=== PATIENT | male | born 1970 | race Caucasian/White ===

== ENCOUNTER 2021-09-21 12:19 | Inpatient (IN) | payer MEDICAID, SELFPAY ==
[2021-09-21 13:04] VITALS: BP 126/83; PULSE 68; RESP 16; TEMP 36.4; O2SAT 99
[2021-09-21 13:08] VITALS: BP 126/83; PULSE 68; RESP 16; TEMP 36.4; O2SAT 99
[2021-09-21 14:00] VITALS: BP 126/83; PULSE 68; RESP 16; TEMP 36.4; O2SAT 99
[2021-09-21 15:21] VITALS: BMI 17.2
[2021-09-21] MEDS: nicotine 2 mg Gum BUCCAL (17:37)
[2021-09-21 21:04] VITALS: BP 124/83; PULSE 72; RESP 17; TEMP 36.8; O2SAT 97
[2021-09-21 21:34] VITALS: BP 124/83; PULSE 72; RESP 17; TEMP 36.8; O2SAT 97
[2021-09-22 06:00] VITALS: BP 123/84; PULSE 58; RESP 19; TEMP 36.4; O2SAT 99
[2021-09-22] MEDS: nicotine 2 mg Gum BUCCAL ×4 (06:51→18:58)
[2021-09-22] MEDS: folic acid 1 mg Tablet PO (09:12)
[2021-09-22] MEDS: thiamine 100 mg Tablet PO (09:12)
[2021-09-22] MEDS: multivitamin therapeutic Tablet 1 TAB PO (09:12)
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
--- NOTE | 2021-09-22 12:05 | NPU.GN ---
[facility] Unit Group Topic:Whine Barrel Activity General Mood of Group: Bobby did not attend group today. Bobby did meet with the CSS and discuss [facility] services. CSS aided client in completing the [facility] paperwork.
[2021-09-22 14:00] VITALS: BP 142/84; PULSE 67; RESP 16; TEMP 36.8; O2SAT 100
--- NOTE | 2021-09-22 17:00 | PC.NURSE ---
Patient brother Remington called and stated that [facility] has an opening for patient. Will notify case management.
--- NOTE | 2021-09-22 17:07 | PC.NURSE ---
Patient gave verbal consent for us to discuss information with brother Remington.
[2021-09-22 20:27] VITALS: BP 130/81; PULSE 55; RESP 17; O2SAT 98
[2021-09-23 06:00] VITALS: BP 125/90; PULSE 78; RESP 18; TEMP 36.6; O2SAT 99
[2021-09-23] MEDS: nicotine 2 mg Gum BUCCAL (06:42)
[2021-09-23] MEDS: multivitamin therapeutic Tablet 1 TAB PO (08:12)
[2021-09-23] MEDS: folic acid 1 mg Tablet PO (08:12)
[2021-09-23] MEDS: thiamine 100 mg Tablet PO (08:12)
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
[2021-09-23 10:54] VITALS: BP 125/90; PULSE 78; RESP 18; TEMP 36.6; O2SAT 99
== END 2021-09-23 11:02 | disposition home or self-care (01) | DRG 897 ==
PROVIDERS: Admitting Provider Psychiatry & Neurology Psychiatry; Visit Provider Psychiatry & Neurology Psychiatry
DX: F10.239 Alcohol dependence with withdrawal, unspecified (principal); R45.851 Suicidal ideations; F17.210 Nicotine dependence, cigarettes, uncomplicated
CPT/HCPCS: 97165

== ENCOUNTER → 2021-11-03 10:27 | Outpatient (BNVA) | payer OTHER, SELFPAY | PROVIDERS: Visit Provider Registered Nurse | DX: Z79.899 Other long term (current) drug therapy (principal) | CPT/HCPCS: 80053; 80061; 83036; 84443; 85025 ==

== ENCOUNTER 2022-01-10 17:07 | Inpatient (IN) | payer MEDICAID, SELFPAY ==
[2021-12-20 16:02] VITALS: BP 112/72; BMI 16.7
[2022-01-10 17:22] VITALS: BP 117/87; PULSE 98; RESP 15; TEMP 36.7; O2SAT 93; BMI 16.7
--- NOTE | 2022-01-10 17:23 | ED_ITS ---
HPI - General Adult General: Chief complaint: Psychiatric Symptoms Stated complaint: MHE Time Seen by Provider: 01/10/22 17:08 History of Present Illness: HPI: [51]yo patient w/ hx of depression BIBA for concerns of depression. Patient noted that he was feeling very depressed and was drinking alcohol. Per EMS, there was concern the patient has access to firearms at home. Denies any suicidal ideation or plan currently. He tells me that is not currently depressed anymore. On arrival, the patient is AAOx3 and cooperative with my evaluation. No focal complaints of chest pain, shortness of breath, palpitations, N/V, focal GI/ complaints. Currently denies SI/HI. No complaints of hallucinations. Onset: acute on chronic Duration: ongoing Location: home Severity: severe Associated symptoms: Deny chest pain, dyspnea, nausea, rash, palpitations or vomiting Review of Systems Const: Denies: fever(s) or chills Eyes: Denies: change in vision ENMT: Denies: mouth pain Card: Denies: chest pain or palpitations Resp: Denies: dyspnea or non-productive cough GI: Denies: abdominal pain, nausea, vomiting or diarrhea : Denies: dysuria Musc: Denies: extremity pain Skin/Breast: Denies: rash or new lesions Neuro: Denies: weakness in extremities Psych: Reports: depression and suicidal ideation Srikanth/Lymph: Denies: easy bruising PFSH ED PFSH: Medical History Financial difficulties Homelessness Major depressive disorder Psychiatric care Social History (Updated 01/10/22 @ 17:29 by Alexandria Ho MD) Smoking and tobacco status: current every day smoker Alcohol intake: current Substance/Drug Use: never Physical Exam Const: COMMON NORMALS: alert HENMT: COMMON NORMALS: atraumatic HEAD & SCALP: atraumatic MOUTH: moist mucous membranes not abnormal Eye: COMMON NORMALS: EOMs intact bilaterally and conjunctivae normal CONJUNCTIVA: Yes conjunctivae normal Neck/C-Spine: COMMON NORMALS: full ROM and supple Resp: COMMON NORMALS: normal respiratory effort and clear to auscultation bilaterally AUSCULTATION: clear to auscultation bilaterally Cardio: COMMON NORMALS: regular rate RATE: regular rate GI: COMMON NORMALS: Soft to palpation and non-tender PALPATION: Yes Soft to palpation Extremity: COMMON NORMALS: full ROM Neuro: SENSORIUM/ORIENTATION: Yes alert MOTOR EXAM: No Abnormal motor strength present and Other motor observations present (no focal motor deficits) Psych: COMMON NORMALS: speech normal SPEECH: Yes normal speech MOOD & AFFECT: Yes depressed mood Course Vital Signs: Vital signs: Vital Signs Temperature 98.0 F 01/10/22 17:22 Pulse Rate 98 01/10/22 17:22 Respiratory Rate 15 01/10/22 17:22 Blood Pressure 117/87 01/10/22 17:22 Pulse Oximetry 93 01/10/22 17:22 MDM - General Adult Medical Decision Making [51]yo patient w/ hx of depression and alcohol dependence presenting for depression and alcohol use. HDS, exam within normal limit Thoughts are linear and organized, and the patient has no AH/VH, or HI. Clinically the patient displays no overt toxidrome; they are well appearing, with low suspicion for toxic ingestion given history and exam. Symptoms unlikely 2/2 anemia, hypothyroidism, infection, or ICH. Workup: CBC, CMP, Lipase, salicylate/tylenol, serum ethanol, UDS Lab findings: wnl I discussed case with Dr. Villa who is concerned the patient may have access to firearm and was depressed earlier and he recommended placing patient on involuntary commitment until patient can be cleared and formally assessed on the psychiatric unit. [6:30pm] On reassessment, labs and workup wnl. Patient is hemodynamically stable with no acute medical complaints. Case discussed with psychiatric provider Dr. Orozco at [facility] psych inpatient with recommendation for admission Disposition: Psych Lab Data : 01/10/22 17:35 01/10/22 17:35 Discharge Plan Discharge Admit Provider: Hood Orozco Condition: Stable Coding Level of Care Code ED Structural Designer for Chg Fwd Exam Comprehensive
[2022-01-10 18:13] LABS: Basophils # 0.1 10^3/uL (0.0-0.1); Basophils % 0.9 %; Eosinophils % 0.3 %; Hematocrit 40.7 % (42.0-52.0); Hemoglobin 14.3 g/dL (11.7-16.6); Lymphocytes # 1.5 10^3/uL (0.8-4.8); Mean Corpuscular HGB Conc 35.1 g/dL (30.0-36.0); Mean Corpuscular Hemoglobin 32.8 pg (28.0-34.0); Mean Corpuscular Volume 93.3 fl (80-94); Mean Platelet Volume 10.6 fL (7.4-10.4); Monocytes # 0.5 10^3/uL (0.2-0.9); Monocytes % 7.9 %; Neutrophils % 65.7 %; Nucleated Red Blood Cells % 0 %; Platelet Count 168 10^3/cmm (130-400); Red Blood Count 4.36 10^6/uL (4.1-5.3); Red Cell Distribution Width 12.9 % (12.1-15.1); White Blood Count 5.8 10^3/uL (4.0-10.0)
[2022-01-10 18:22] LABS: Amphetamines Screen Urine Negative (Negative); Barbiturates Screen Urine Negative (Negative); Benzodiazepines Screen Urine Negative (Negative); Cocaine Screen Urine Negative (Negative); Opiate Screen Urine Negative (Negative); PCP Screen Urine Negative (Negative); THC Screen Urine Negative (Negative)
[2022-01-10 18:34] LABS: Alanine Aminotransferase 14 U/L (0-41); Albumin Level 4.4 g/dL (3.5-5.2); Alcohol Level 276 mg/dL (0-10); Alkaline Phosphatase 96 IU/L (40-130); Anion Gap 15.4 (5-19); Aspartate Amino Transferase 27 U/L (0-40); Blood Urea Nitrogen 8 mg/dL (6-20); Calcium 8.7 mg/dL (8.5-10.5); Carbon Dioxide 27 mmol/L (22-29); Chloride 103 mmol/L (98-107); Globulin 2.5 g/dL (1.3-4.6); Glomerular Filtration Rate 142.6 mL/min (90-130); Glucose 80 mg/dL (65-115); Lipase 62 U/L (13-60); Osmolality Calculated 289 mOsm/kg (285-295); Potassium 4.4 mmol/L (3.5-5.1); Sodium 141 mmol/L (136-145); Total Bilirubin 0.3 mg/dL (0.15-1.2); Total Protein 6.9 g/dL (6.6-8.7)
[2022-01-10 18:35] LABS: Acetaminophen < 5.0 ug/mL (10-30); Salicylate < 0.3 mg/dL (3-10)
[2022-01-10 19:17] VITALS: RESP 16
[2022-01-10 20:12] VITALS: BP 121/83; PULSE 85; RESP 16; TEMP 36.6; O2SAT 93
[2022-01-11 06:00] VITALS: BP 150/82; PULSE 58; RESP 15; TEMP 36.7; O2SAT 96
[2022-01-11] MEDS: nicotine 2 mg Gum BUCCAL ×3 (10:53→17:24)
--- NOTE | 2022-01-11 12:06 | P.NPUHP_ITS ---
Providers/Chief Complaint Admitting Physician: Hood Orozco MD Chief Complaint: MHE HPI NPU History of Present Illness Bobby Gunn is a 51 year old male presents to the neuropsychiatric unit secondary to depression and concern from his director of casework department. He reports he has been psychiatrically hospitalized 6 times starting around 24 to 27 and the last time of which was a couple of months ago for 3 days. He reports he recently just [facility] and has received outpatient services previously. He reports he was on Citalopram prior to his admission and he hasn?t been taking it for a few days. He reports alcohol daily which he began around 16 years old with currently drinking a couple of beers and shots daily. He denies any issues with withdrawal. He reports a pack of cigarettes a day, reports marijuana and other illicit drug use when he was younger but denies currently. He has never had drug and alcohol treatment. He reports he has been homeless for some time and has been couch surfing to get by. 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 He reports his family and friends have expressed concerns about his drinking. He denies suicidal ideation or past suicide attempts but reports he has made suicidal statements when he was drunk in the past which resulted in his involuntary hold. He reports when he is drinking he doesn?t take his medications as it makes him sick. He reports the longest time he was sober was for 68 days. Psychiatric History: As above. Substance Abuse History: As above Family History: He denies mental health issues on either side of the family and reports addiction issues on both sides of the family. Developmental History: He denies any developmental issues or need for speech therapy, learning support, emotional support or special education classes. Psychosocial History: He reports he was born in [place] and raised by his mother and step father until they after 14 years old. He is the only product of this union and he has 7 half siblings. The highest grade he achieved was 8 th grade and did not get his GED. He reports he left home at 16 years old to live with his older brother but denies emotional, physical or sexual abuse during his childhood. He is currently homeless. 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 He has been once but is currently and does not have any children. Legal History: He did not report any legal issues during the interview. Medical History: Denied. Meds NPU Home Medications Medication Instructions Recorded Confirmed Last Taken Type thiamine mononitrate (vit B1) 100 100 mg PO DAILY 30 Days #30 tab 09/23/21 01/09/22 Unknown Rx mg tablet (Vitamin B-1 (mononitrate)) naltrexone 50 mg tablet 50 mg PO DAILY #30 tab 01/05/22 01/05/22 Unknown Rx citalopram 20 mg tablet 10 mg PO DAILY 01/10/22 01/11/22 Unknown History citalopram 20 mg tablet (Celexa) 10 mg PO DAILY 01/10/22 01/10/22 Unknown History gabapentin 100 mg capsule 100 mg PO BID 01/10/22 01/10/22 Unknown History Allergies Allergy/AdvReac Type Severity Reaction Status Date / Time No Known Allergies Allergy Verified 09/27/21 09:35 PFS NPU PFSH: Medical History Financial difficulties Homelessness Major depressive disorder Psychiatric care Social History (Updated 01/10/22 @ 17:29 by Alexandria Ho MD) Smoking and tobacco status: current every day smoker Alcohol intake: current Substance/Drug Use: never Mental Status Exam MSE Comments: Alert and oriented to person place and time. Mood: described as depressed, Affect: flat and restricted in range, Thought process: linear logical and goal directed. TC: passive SI endorsed, no active HI, no abnormal involuntary motor movements, Attention: distracted, no delusional thinking, not responding to internal stimuli. Billateral tremors in hands appreciated. Vitals/I&O/Wt Last Vital Signs Temp 98 F 01/11/22 19:19 Pulse 68 01/11/22 19:19 Resp 20 H 01/11/22 19:19 BP 124/82 01/11/22 19:19 Pulse Ox 98 01/11/22 19:19 Weight last 48 hrs Weight 49.895 kg Data NPU : 01/10/22 17:35 01/10/22 17:35 A&P Assessment and plan (1) Financial difficulties: Status: Acute (2) Homelessness: Status: Acute (3) Major depressive disorder: Status: Acute (4) Psychiatric care: Status: Acute (5) Alcohol use disorder, severe, dependence: Status: Acute Plan Continue current medications 2. Encourage individual, group and milieu therapy 3. Continue q-15 minute check for safety 4. Recommend sober living treatment at the highest level of care to which the patient is willing to commit. 5 CIWA scale Involuntary Hold Information 96 Hour Hold: 96 Hour Involuntary Admission: No Attestations NPU Medical Necessity Statement*: Inpatient hospitalization is medically necessary and the clinically appropriate intervention at this time. We will monitor medications and make changes as indicated. Patient will be in the hospital for over two midnights. Likely length of stay is one to three days. Coding Level of Care Code Acute Dispatch Associate for Mello Nowak Diagnoses Financial difficulties Z59.9 Homelessness Z59.00 Major depressive disorder F32.9 Psychiatric care Alcohol use disorder, severe, dependence F10.20
[2022-01-11 14:00] VITALS: BP 124/82; PULSE 60; RESP 20; TEMP 36.8; O2SAT 98
[2022-01-11 19:19] VITALS: BP 124/82; PULSE 68; RESP 20; TEMP 36.6; O2SAT 98
[2022-01-11] MEDS: nicotine 4 mg lozenge MUCOUS MEM (20:19)
--- NOTE | 2022-01-11 20:41 | PC.NURSE ---
IN DAY AREA WATCHING TV. STATES HE IS VERY ANXIOUS DUE TO WANTING TO SMOKE A CIGARRETTE. EDUCATED PT THAT THIS RN COULD CALL AND GET ORDER FOR LOZENGE 4 MG NICOTINE. PT STATES HE WOULD LIKE THAT. NEW ORDER OBTAINED FOR THE OBOVE AND GIVEN TO PT ORDERED. PT DECLINES ANY ANXIETY MEDS AT THIS TIME. DENIES SI/HI AND AVH AT THIS TIME. DENIES PAIN. ALL QUESTIONS ANSWERED AND SUPPORT VOICED.
[2022-01-12 05:47] VITALS: BP 124/82; PULSE 68; RESP 20; TEMP 36.6; O2SAT 98
[2022-01-12] MEDS: nicotine 4 mg lozenge MUCOUS MEM ×7 (05:57→20:58)
[2022-01-12 05:58] VITALS: BP 110/65; PULSE 69; RESP 16; TEMP 36.6; O2SAT 98
[2022-01-12] MEDS: nicotine 2 mg Gum BUCCAL (12:59)
[2022-01-12 13:47] VITALS: BP 116/59; PULSE 92; RESP 17; TEMP 37.1; O2SAT 97
--- NOTE | 2022-01-12 16:03 | P.NPUPN_ITS ---
Subjective NPU Subjective: Patient presents today reporting that he like to discharge sooner rather than later. We discussed the fact that he is on a 96-hour hold and that we would need to review the documentation and get collateral information to identify his appropriateness and safety for discharge. Reportedly had his medication in his bag and we did use that to determine which medications to restart however he does identify that he had missed multiple doses before he even got to the hospital. We agreed we would review the medication and initiate his medication at appropriate doses based on that information. Mental Status Exam MSE Comments: This is an underweight white male in hospital scrubs with adequate grooming and eye contact. No abnormal movements. Cooperative with exam in no acute distress. Speech was slightly decreased rate and volume mood described as better, affect appeared euthymic. Thought process organized. Thought content: Patient denied suicidal or homicidal ideation, there were no delusions reported or noted, he denied any auditory visual hallucinations. Attention and concentration appear intact and memory appeared reliable but none were formally tested. He is alert and oriented x3. Insight and judgment appear limited, impulse control is limited. Vitals/I&O/Wt Last Vital Signs Temp 98.2 F 01/12/22 20:06 Pulse 88 01/12/22 20:06 Resp 16 01/12/22 20:06 BP 130/64 01/12/22 20:06 Pulse Ox 98 01/12/22 20:06 Data NPU : 01/10/22 17:35 01/10/22 17:35 A&P Assessment and plan (1) Financial difficulties: Status: Acute (2) Homelessness: Status: Acute (3) Major depressive disorder: Status: Acute (4) Alcohol use disorder, severe, dependence: Status: Acute Plan This is a 51-year-old white male with a long history of addiction and mental health issues who presents has been off his medication for several days. 1. Continue current medication. We will search his belongings for his current medications and restart them as appropriate. 2. Continue every 15 minute checks for safety. 3. Encourage individual, group and milieu therapies. 4. Encourage sober living treatment after discharge at the highest level of care to which he is willing to commit. Involuntary Hold Information 96 Hour Hold: 96 Hour Involuntary Admission: No Attestations NPU Medical Necessity Statement*: Inpatient hospitalization is medically necessary and the clinically appropriate intervention at this time. We will monitor medications and make changes as indicated. Likely length of stay is one to three days. Coding Level of Care Code Acute Commercial Energy Auditor for Chg Fwd Diagnoses Financial difficulties Z59.9 Homelessness Z59.00 Major depressive disorder F32.9 Alcohol use disorder, severe, dependence F10.20
[2022-01-12 20:06] VITALS: BP 130/64; PULSE 88; RESP 16; TEMP 36.8; O2SAT 98
[2022-01-13 06:00] VITALS: BP 111/76; PULSE 65; RESP 18; TEMP 36.9; O2SAT 98
[2022-01-13] MEDS: nicotine 4 mg lozenge MUCOUS MEM ×9 (06:00→21:42)
[2022-01-13] MEDS: citalopram 20 mg Tablet 10 MG PO (08:07)
[2022-01-13 14:00] VITALS: BP 106/71; PULSE 89; RESP 17; TEMP 36.6; O2SAT 97
--- NOTE | 2022-01-13 17:08 | P.NPUPN_ITS ---
Subjective NPU Subjective: Patient presents today reporting that he is a little frustrated about not leaving yet. We were able to clarify that I like he was thinking due to the confusion of his situation he has not been here for over 100 hours he has not even been here for 72 hours. 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 He feels somewhat tricked into being in the hospital and was initially reporting he was going to be resistant to the treatment plan he and his caseworker protective services have next Sunday. But he was able to settle down and we discussed the risk-benefit alternatives of a discharge in the morning and he understood agreed proceed as is documented in this note. Mental Status Exam MSE Comments: This is an underweight white male in hospital scrubs with adequate grooming and eye contact.? No abnormal movements.? Cooperative with exam in mild distress.? Speech was slightly decreased rate and volume. Mood described as better, affect appeared euthymic.? Thought process organized.? Thought content: Patient denied suicidal or homicidal ideation, there were no delusions reported or noted, he denied any auditory visual hallucinations.? Attention and concentration appear intact and memory appeared reliable but none were formally tested.? He is alert and oriented x3.? Insight and judgment appear limited, but improving impulse control is limited. Vitals/I&O/Wt Last Vital Signs Temp 97.9 F 01/13/22 14:00 Pulse 89 01/13/22 14:00 Resp 17 01/13/22 14:00 BP 106/71 01/13/22 14:00 Pulse Ox 97 01/13/22 14:00 Data NPU : 01/10/22 17:35 01/10/22 17:35 A&P Assessment and plan (1) Financial difficulties: Status: Acute (2) Homelessness: Status: Acute (3) Major depressive disorder: Status: Acute (4) Alcohol use disorder, severe, dependence: Status: Acute Plan This is a 51-year-old white male with a long history of addiction and mental health issues who presents has been off his medication for several days. 1.? Continue current medication.? We restarted his Celexa 10 mg p.o. every morning and will possibly discharge him on escalated dose to 20 mg. 2.? Continue every 15 minute checks for safety. 3.? Encourage individual, group and milieu therapies. 4.? Encourage sober living treatment after discharge at the highest level of care to which he is willing to commit. Involuntary Hold Information 96 Hour Hold: 96 Hour Involuntary Admission: No Attestations NPU Medical Necessity Statement*: Inpatient hospitalization is medically necessary and the clinically appropriate intervention at this time. We will monitor me dications and make changes as indicated. Plan for discharge in the morning. Coding Level of Care Code Acute On Awake Counselor for Mello Nowak Diagnoses Financial difficulties Z59.9 Homelessness Z59.00 Major depressive disorder F32.9 Alcohol use disorder, severe, dependence F10.20
[2022-01-13 20:06] VITALS: BP 114/81; PULSE 64; RESP 18; O2SAT 97
[2022-01-14 06:00] VITALS: BP 113/68; PULSE 58; RESP 16; O2SAT 97
[2022-01-14] MEDS: nicotine 4 mg lozenge MUCOUS MEM ×2 (07:06→09:04)
[2022-01-14] MEDS: citalopram 20 mg Tablet 10 MG PO (08:08)
--- NOTE | 2022-01-14 08:19 | W.PM.NPUDCS ---
Diagnoses at Discharge Discharge Diagnosis (1) Financial difficulties: Status: Acute (2) Homelessness: Status: Acute (3) Major depressive disorder: Status: Acute (4) Alcohol use disorder, severe, dependence: Status: Acute Reason for Visit Reason for Visit: E Brief History: History of Present Illness Bobby Gunn is a 51 year old male? presents to the neuropsychiatric unit secondary to depression and concern from his major case detective. He reports he has been psychiatrically hospitalized 6 times starting around 24 to 27 and the last time of which was a couple of months ago for 3 days. He reports he recently just started new outpatient therapeutic and psychiatric services through [facility] and has received outpatient services previously. He reports he was on Citalopram prior to his admission and he hasn?t been taking it for a few days. He reports alcohol daily which he began around 16 years old with currently drinking a couple of beers and shots daily. He denies any issues with withdrawal. He reports a pack of cigarettes a day, reports marijuana and other illicit drug use when he was younger but denies currently. He has never had drug and alcohol treatment. He reports he has been homeless for some time and has been couch surfing to get by. 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 He reports his family and friends have expressed concerns about his drinking. He denies suicidal ideation or past suicide attempts but reports he has made suicidal statements when he was drunk in the past which resulted in his involuntary hold. He reports when he is drinking he doesn?t take his medications as it makes him sick. He reports the longest time he was sober was for 68 days. Psychiatric History: As above. Substance Abuse History: As above Family History: He denies mental health issues on either side of the family and reports addiction issues on both sides of the family. Developmental History: He denies any developmental issues or need for speech therapy, learning support, emotional support or special education classes. Psychosocial History: He reports he was born in [place] and raised by his mother and step father until they after 14 years old. He is the only product of this union and he has 7 half siblings. The highest grade he achieved was 8 th grade and did not get his GED. He reports he left home at 16 years old to live with his older brother but denies emotional, physical or sexual abuse during his childhood. He is currently homeless. 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 He has been once but is currently and does not have any children. Legal History: He did not report any legal issues during the interview. Medical History: Denied. Hospital Course Hospital Course He slowly acclimated to the individual, group and milieu therapies provided. He has been on lower dose of the Celexa was increased to 12 mg p.o. every morning. He worked with the treatment team to find some sober living opportunities which may include a more intensive programming starting Sunday. He had significant improvement during hospitalization and was able to contract for safety prior to discharge. And seems to have continued focused on his right. He reports since his last hospitalization here he has been doing much better. He had been on a 96-hour hold but was showing improved insight. He was able to contract for safety outside of the hospital prior to discharge. During the hospitalization, patient had routine laboratory studies which were within normal limits except for few outliers. Additionally there was a general medical evaluation which was also within normal limits and revealed no new acute processes. Discharge Summary: At the time of discharge, he denied psychosis or lethality. Mood and anxiety were well managed. Patient endorsed a plan to avoid all drugs of abuse and follow-up with the aftercare recommendations of the treatment team. Patient was evaluated and deemed to be absent credible lethality, and had achieved the maximum benefit from an inpatient hospitalization, so was discharged. Involuntary Hold Information 96 Hour Hold: 96 Hour Involuntary Admission: No Mental Status Exam MSE Comments: This is an underweight white male in hospital scrubs with adequate grooming and eye contact.? No abnormal movements.? Cooperative with exam in mild distress.? Speech was slightly decreased rate and volume.? Mood described as better, affect appeared euthymic.? Thought process organized.? Thought content: Patient denied suicidal or homicidal ideation, there were no delusions reported or noted, he denied any auditory visual hallucinations.? Attention and concentration appear intact and memory appeared reliable but none were formally tested.? He is alert and oriented x3.? Insight and judgment appear limited, but improving impulse control is limited. Discharge Data Studies Completed and Pending: Laboratory Results WBC 5.8 10^3/uL (4.0- 10.0) 01/10/22 17:35 RBC 4.36 10^6/uL (4.1 -5.3) 01/10/22 17:35 Hgb 14.3 g/dL (11.7-1 6.6) 01/10/22 17:35 Hct 40.7 % (42.0-52.0 ) L 01/10/22 17:35 MCV 93.3 fl (80-94) 01/10/22 17: MCH 32.8 pg (28.0-34. 0) 01/10/22 17:35 MCHC 35.1 g/dL (30.0-3 6.0) 01/10/22 17:35 RDW 12.9 % (12.1-15.1 ) 01/10/22 17:35 Plt Count 168 10^3/cmm (130 -400) 01/10/22 17:35 MPV 10.6 fL (7.4-10.4 ) H 01/10/22 17:35 Neut % (Auto) 65.7 % 01/10/22 17:35 Lymph % (Auto) 25.0 % 01/10/22 17:35 [place] % (Auto) 7.9 % 01/10/22 17:35 Eos % (Auto) 0.3 % 01/10/22 17:35 Baso % (Auto) 0.9 % 01/10/22 17:35 Neut # (Auto) 3.80 10^3/uL (1.8 -7.7) 01/10/22 17:35 Lymph # (Auto) 1.5 10^3/uL (0.8- 4.8) 01/10/22 17:35 [place] # (Auto) 0.5 10^3/uL (0.2- 0.9) 01/10/22 17:35 Eos # (Auto) 0.0 10^3/uL (0.0- 0.8) 01/10/22 17:35 Baso # (Auto) 0.1 10^3/uL (0.0- 0.1) 01/10/22 17:35 Nucleated RBC % (a uto) 0 % 01/10/22 17: Nucleated RBCs # 0.0 /100WBC 01/10/22 17:35 Sodium 141 mmol/L (136-1 45) 01/10/22 17:35 Potassium 4.4 mmol/L (3.5-5 .1) 01/10/22 17:35 Chloride 103 mmol/L (98-10 7) 01/10/22 17:35 Carbon Dioxide 27 mmol/L (22-29) 01/10/22 17:35 Anion Gap 15.4 (5-19) 01/10/22 17:35 BUN 8 mg/dL (6-20) 01/10/22 17:35 Creatinine 0.6 mg/dL (0.7-1. 2) L 01/10/22 17:35 GFR Calculation 142.6 mL/min (90- 130) H 01/10/22 17:35 Glucose 80 mg/dL (65-115) 01/10/22 17:35 Calculated Osmolal ity 289 mOsm/kg (285- 295) 01/10/22 17:35 Calcium 8.7 mg/dL (8.5-10 .5) 01/10/22 17:35 Total Bilirubin 0.3 mg/dL (0.15-1 .2) 01/10/22 17:35 AST 27 U/L (0-40) 01/10/22 17:35 ALT 14 U/L (0-41) 01/10/22 17:35 Alkaline Phosphata se 96 IU/L (40-130) 01/10/22 17:35 Total Protein 6.9 g/dL (6.6-8.7 ) 01/10/22 17:35 Albumin 4.4 g/dL (3.5-5.2 ) 01/10/22 17:35 Globulin 2.5 g/dL (1.3-4.6 ) 01/10/22 17:35 Lipase 62 U/L (13-60) H 01/10/22 17:35 Salicylates < 0.3 mg/dL (3-10 ) L 01/10/22 17:35 Urine Opiates Scre en Negative ng/mL (N egative) 01/10/22 17:35 Acetaminophen < 5.0 ug/mL (10-3 0) L 01/10/22 17:35 Ur Barbiturates Sc reen Negative ng/mL (N egative) 01/10/22 17:35 Ur Phencyclidine S crn Negative ng/mL (N egative) 01/10/22 17:35 Ur Amphetamines Sc reen Negative ng/mL (N egative) 01/10/22 17:35 U Benzodiazepines Scrn Negative ng/mL (N egative) 01/10/22 17:35 Urine Cocaine Scre en Negative ng/mL (N egative) 01/10/22 17:35 U Marijuana (THC) Screen Negative ng/mL (N egative) 01/10/22 17:35 Ethyl Alcohol 276 mg/dL (0-10) H 01/10/22 17:35 Vitals: Last Vital Signs Temp 97.9 F 01/13/22 14:00 Pulse 64 01/13/22 20:06 Resp 18 01/13/22 20:06 BP 114/81 01/13/22 20:06 Pulse Ox 97 01/13/22 20:06 Discharge Plan Discharge Patient Disposition: Home Condition: Stable Prescriptions: Changed citalopram 20 mg tablet 20 mg PO DAILY 30 Days Qty: 30 1RF Discharge Orders: Discharge Order (Routine); Ordered 01/14/22 Ordered By: Donnie Hall Referrals: Krupa Owens [Staff Physician] - 01/19/22 9:30 am (Follow up.) Rika Coles CSS [Annealing Torch Operator] - ([address], [place] [address] Ext [phone]) Discharge Diet: Regular Discharge Activity: Resume usual activity Patient Instructions: Citalopram (By mouth), Depression (DC), Opioid Safety Discharge Attestations NPU Time Spent in Discharge Care*: less than 30 min Specific Discharge Activities: Specific discharge activities: educating patient, discussing with porter sample case/social workers/dc planners, documenting/other paperwork and evaluating patient/reviewing data Coding Level of Care Code Acute Chg FW DC note Diagnoses Financial difficulties Z59.9 Homelessness Z59.00 Major depressive disorder F32.9 Alcohol use disorder, severe, dependence F10.20
[2022-01-14 10:06] VITALS: BP 113/68; PULSE 58; RESP 16; O2SAT 97
== END 2022-01-14 11:11 | disposition home or self-care (01) | DRG 881 ==
LOC: ER 17:24 → NP 01-11 02:26
PROVIDERS: Admitting Provider Psychiatry & Neurology Psychiatry; Emergency Provider Emergency Medicine; Visit Provider Psychiatry & Neurology Psychiatry
DX: F32.9 Major depressive disorder, single episode, unspecified (principal); Z59.01 Sheltered homelessness; F17.200 Nicotine dependence, unspecified, uncomplicated; F10.20 Alcohol dependence, uncomplicated; T43.226A Underdosing of selective serotonin reuptake inhibitors, initial encounter
CPT/HCPCS: 80053; 80306; 80307; 83690; 85025; 97165; 99285

== ENCOUNTER → 2022-12-20 12:38 | Outpatient (BNVA) | payer BC, SELFPAY ==
[2021-12-20 16:02] VITALS: BP 112/72; BMI 16.7
== END ==
PROVIDERS: Visit Provider Psychiatry & Neurology Psychiatry
DX: F10.20 Alcohol dependence, uncomplicated (principal); F32.9 Major depressive disorder, single episode, unspecified; Z59.00 Homelessness unspecified; Z59.9 Problem related to housing and economic circumstances, unspecified; F19.99 Other psychoactive substance use, unspecified with unspecified psychoactive substance-induced disorder; Z79.899 Other long term (current) drug therapy
CPT/HCPCS: 80053; 80061; 83036; 84443; 85025

== ENCOUNTER → 2024-12-30 15:27 | Outpatient (BNVA) | payer BC, SELFPAY ==
[2021-12-20 16:02] VITALS: BP 112/72; BMI 16.7
== END ==
PROVIDERS: Visit Provider Psychiatry & Neurology Psychiatry
DX: F10.20 Alcohol dependence, uncomplicated (principal); F41.1 Generalized anxiety disorder; F60.0 Paranoid personality disorder
CPT/HCPCS: 80061; 83036